=== PATIENT | female | born 1965 | race Asian ===

== ENCOUNTER 2016-10-03 09:44 | Emergency (ER) | payer OTHER ==
[2016-10-03 09:51] VITALS: BP 109/94; PULSE 74; RESP 16; TEMP 97.3; O2SAT 98
[2016-10-03] MEDS ORDERED: IBUPROFEN 600 MG TAB PO ONE (10:09)
--- NOTE | 2016-10-03 10:10 | EDPHY ---
H & P Stated Complaint: rolled r foot on stairs wearing heels HPI/ROS: CHIEF COMPLAINT: Foot injury, pain HISTORY OF PRESENT ILLNESS: Patient complains of right foot pain after rolling her ankle this morning. She was going down the stairs of her basement and heels when she slipped. She twisted her foot in an unknown direction. She had a sudden onset of pain in the mid foot. Radiates up to the base of the ankle. There is also some mild pain in the right lateral thigh. Five or 6/10 pain with worsening when she attempts to bear weight. Unable to walk on it. No pain in the right ankle. No pain in the right heel. No other associated complaints or modifying factors. REVIEW OF SYSTEMS: Ten systems reviewed and are negative unless otherwise noted in the HPI PAST MEDICAL HISTORY: Denies any medical history SOCIAL HISTORY: Nonsmoker. Works as an attorney lawyer here in [employer] FAMILY HISTORY: Noncontributory EXAMINATION General Appearance: Alert, no distress Head: normocephalic, atraumatic Neck: Normal inspection, supple, non-tender Respiratory: No retractions or distress Cardiovascular: Regular rate. Symmetric DP and PT pulses 2+. Back: non-tender, no bony abnormalities Neurological: A&O, nonfocal, antalgic gait. Sensory intact in the affected extremity. Normal proprioception of the great toe. Skin: Warm and dry, no rash. No lacerations abrasions or contusions. Extremities: Moderate tenderness of the right midfoot. There is no crepitus, deformity, erythema or ecchymosis. There is no tenderness of the right ankle. No tenderness of the right heel. No tenderness of the right proximal fibula. Range of motion is intact nonweightbearing. Psychiatric: Mood and affect normal DIFFERENTIAL DIAGNOSES: Including but not limited to sprain, strain, fracture, dislocation, fracture dislocation MDM: 10:09 a.m. Acute sprain of the right foot with midfoot pain only. No pain elsewhere. X- ray of the foot has been ordered. Ibuprofen has been ordered. She is neurovascular intact in no acute distress 11:10 a.m. Acute sprain of the right foot without any evidence of fracture. No evidence of vascular injury. No compartment syndrome. Discharged home with postop shoe and weight-bearing as tolerated instructions. Follow up with Orthopedics for definitive care. Return to ER precautions discussed. SUPERVISION: This patient was independently evaluated without direct examination by the attending physician. Case was discussed with attending physician. Source: Patient, Family Exam Limitations: No limitations - Personal History LMP (Females 10-55): Irregular Current Tetanus/Diphtheria Vaccine: Unsure - Medical/Surgical History Hx Asthma: No Hx Chronic Respiratory Disease: No Hx Diabetes: No Hx Cardiac Disease: No Hx Renal Disease: No Hx Cirrhosis: No Hx Alcoholism: No Hx HIV/AIDS: No Hx Splenectomy or Spleen Trauma: No Other PMH: denies - Social History Smoking Status: Never smoked Constitutional: Initial Vital Signs Temperature (C) 97.3 F 10/03/16 09:48 Heart Rate 74 10/03/16 09:48 Respiratory Rate 16 10/03/16 09:48 Blood Pressure 109/94 H 10/03/16 09:48 O2 Sat (%) 98 10/03/16 09:48 O2 Delivery Mode Room Air Allergies/Adverse Reactions: No Known Allergies Allergy (Unverified 10/03/16 09:48) Home Medications: Medication Instructions Recorded Acetaminophen/Codeine 300/30Mg 1 each PO Q6 PRN #11 tab 10/03/16 [Tylenol #3 (*)] Medical Decision Making - Diagnostics Imaging Results: Imaging Impressions Foot X-Ray 10/03/16 10:09 Impression: 1. There is no acute fracture identified. 2. Midfoot soft tissue swelling. - Data Points Medications Given: Discontinued Medications Ibuprofen (Motrin) 600 mg PO EDNOW ONE Stop: 10/03/16 10:10 Last Admin: 10/03/16 10:17 Dose: 600 mg Departure - Departure Disposition: Home, Routine, Self-Care Clinical Impression: Sprain of foot, right Qualifiers: Encounter type: initial encounter Qualified Code(s): S93.601A - Unspecified sprain of right foot, initial encounter Condition: Good Instructions: Foot Sprain (ED) Additional Instructions: 1. Follow up with Orthopedics and primary care for definitive care 2. Ibuprofen 600 mg every 8 hours as needed for pain and swelling Referrals: Gretel Agarwal MD [Primary Care Provider] - As per Instructions Kushal Zavala MD [Medical Doctor] - As per Instructions Prescriptions: Acetaminophen/Codeine 300/30Mg [Tylenol #3 (*)] 1 each PO Q6 PRN #11 tab PRN Reason: Pain, Mild
== END 2016-10-03 11:37 | disposition home or self-care (01) ==
DX: S93.601A Unspecified sprain of right foot, initial encounter (principal); W18.40XA Slipping, tripping and stumbling without falling, unspecified, initial encounter
CPT/HCPCS: L3260

== ENCOUNTER → 2016-10-25 | Outpatient (CLI) | payer OTHER | LOC: BMCIMAGING 09:28 | PROVIDERS: ATTEND Podiatrist Foot & Ankle Surgery | DX: Z09 Encounter for follow-up examination after completed treatment for conditions other than malignant neoplasm (principal); Z98.890 Other specified postprocedural states ==

== ENCOUNTER → 2017-01-05 | Outpatient (CLI) | payer OTHER | LOC: BMCIMAGING 14:47 | PROVIDERS: ATTEND Podiatrist Foot & Ankle Surgery | DX: S93.324D Dislocation of tarsometatarsal joint of right foot, subsequent encounter (principal) ==